=== PATIENT | male | born 1985 | race African-American/Black ===

== ENCOUNTER 2023-04-29 17:53 | Emergency (ER) | payer OTHER, SELFPAY ==
[2023-04-29 18:14] VITALS: BP 180/110; PULSE 98; RESP 18; TEMP 36.9; O2SAT 99; BMI 29.4
--- NOTE | 2023-04-29 18:23 | ED_ITS ---
HPI - URI/Sore Throat General Chief Complaint: Upper Respiratory Infection Stated Complaint: SORE THROAT Time Seen by Provider: 04/29/23 17:58 Source: patient Limitations: no limitations History of Present Illness HPI Narrative: Patient is a 38-year-old male presents to the ER with concerns of sore throat and painful swallowing, states symptoms started 3 days ago, denies fever. States he had some sinus congestion which resolved after using a vapo stick. Patient has been trying Chloraseptic spray without relief, notes painful swallowing drinking water and ice chips at the bedside but spits frequently. Patient states he has not taken his blood pressure medication in 2 days because it hurts to swallow. He appears in no distress and did not take any Tylenol or Motrin prior to arrival. Minimal cough noted. declines COVID or influenza screen MD elicited complaint: Reports sore throat and nasal congestion; Denies fever Onset (ago): day(s) (3) Consistency: Reports constant Able to tolerate fluids by mouth: Yes (ice chips at bedside) Exacerbating factors: Reports swallowing Relieving factors: Reports nasal spray Context: Denies sick contacts or recent travel Associated symptoms: Reports cough, nausea and vomiting (x1 before symptom onset) Treatments prior to arrival: Reports none Related Data Previous Rx's ?Medication ?Instructions ?Recorded amoxicillin 500 mg capsule 500 mg PO BID 10 days #20 caps 04/29/23 ibuprofen 600 mg tablet 600 mg PO TID PRN pain #30 tabs 04/29/23 ondansetron HCl 4 mg tablet 4 mg PO Q6H PRN nausea and 04/29/23 vomiting #12 tabs Allergies Allergy/AdvReac Type Severity Reaction Status Date / Time No Known Drug Allergies Allergy Verified 04/29/23 18:17 Review of Systems ROS Constitutional Denies: fever or chills Ears, nose, mouth, and throat Reports: throat pain, neck pain, throat swelling and difficulty swallowing; Denies: mouth pain or swelling of lips/tongue Cardiovascular Denies: chest pain or palpitations Respiratory Denies: shortness of breath, cough or wheezing Gastrointestinal Denies: abdominal pain, nausea or vomiting Genitourinary Denies: painful urination Musculoskeletal Denies: back pain or neck pain Integumentary/Breast Denies: rash Neurological Denies: headache Psychiatric Denies: anxiety Allergic/Immunologic Denies: hives Exam Narrative Exam Narrative: Nurses notes and vital signs reviewed and patient is not hypoxic. General: The patient appears well and in no apparent distress. Patient is resting chair in triage Skin: Warm, dry, no pallor noted. Head: Normocephalic, atraumatic Neck: Supple, trachea mid-line, no tenderness,Positive tender anterior cervical lymphadenopathy Eye: Pupils are equal, round and reactive to light, EOMI Ears, Nose, Mouth, and Throat: mild Cerumen bilateral canals, visualized portions of the TM unremarkable. oral mucosa is moist, no posterior oropharynx erythema or hypertrophy, uvula is mid-line Erythematous and swollen without evidence of abscess. Consistent with uvulitis. I can feel the ball hit the back of my tongue. Cardiovascular: Regular Rate and Rhythm Respiratory: Patient is in no distress, no accessory muscle use, lungs are clear to auscultation, no wheezing, rales or rhonchi. Musculoskeletal: normal ROM, no tenderness, no swelling GI: denies abdominal Pain Neurological: A&O x4 Psychiatric: Cooperative Constitutional Vital Signs, click to edit/add: Last Vital Signs Temp 98.4 F 04/29/23 18:14 Pulse 98 H 04/29/23 18:14 Resp 18 04/29/23 18:14 BP 180/110 H 04/29/23 18:14 Pulse Ox 99 04/29/23 18:14 O2 Del Method Room Air 04/29/23 18:14 Course Vital Signs Vital signs: Vital Signs Temperature 98.4 F 04/29/23 18:14 Pulse Rate 98 H 04/29/23 18:14 Respiratory Rate 18 04/29/23 18:14 Blood Pressure 180/110 H 04/29/23 18:14 Pulse Oximetry 99 04/29/23 18:14 Oxygen Delivery Method Room Air 04/29/23 18:14 Temperature 98.4 F 04/29/23 18:14 Pulse Rate 98 H 04/29/23 18:14 Respiratory Rate 18 04/29/23 18:14 Blood Pressure 180/110 H 04/29/23 18:14 Pulse Oximetry 99 04/29/23 18:14 Oxygen Delivery Method Room Air 04/29/23 18:14 MDM - URI/Sore Throat MDM Narrative Medical decision making narrative: Patient presents with complaint of sore throat, painful swallowing for the past 2 to 3 days. Clinical exam noted for uvulitis, empiric treatment discussed. Patient given Decadron, oral Tylenol. He has tried Chloraseptic spray without relief. He is tolerating ice chips at the bedside. We discussed antibiotic use, risks and benefits. Patient will need to continue with Tylenol Motrin for relief. Patient may return if symptoms worsen or new symptoms develop. Abscess not appreciated at this time. We discussed his hypertension and patient admits to having blood pressure medications at home but has not taken it for the past 2 days because it hurt to swallow. Patient is to practice a soft liquid diet for the next 12 to 24 hours. The patient is to followup with primary care physician in next 2-3 days or to return to the emergency department should any of the signs or symptoms worsen or new symptoms develop. Patient had questions answered. The patient agrees with the following Diagnosis and Treatment plan and the patient will be discharged home. Discharge Plan Discharge Stand Alone Forms: Portal Instructions Chief Complaint: Upper Respiratory Infection Clinical Impression: Uvulitis Patient Disposition: Home, Self-Care Time of Disposition Decision: 18:31 Condition: Good Mode of Transportation: Private Vehicle Prescriptions / Home Meds: New ondansetron HCl 4 mg tablet 4 mg PO Q6H PRN (Reason: nausea and vomiting) Qty: 12 0RF ibuprofen 600 mg tablet 600 mg PO TID PRN (Reason: pain) Qty: 30 0RF amoxicillin 500 mg capsule 500 mg PO BID 10 Days Qty: 20 0RF Print Language: Luxembourger Instructions: Uvulitis (ED) Additional Instructions: Continue with Motrin and Tylenol despite antibiotic treatment, return to ER if symptoms worsen - Clear liquids for next 12-24 hours. -contact your PCP for follow up and have BP rechecked Referrals: Luis Enrique Sandoval MD [Physician] - 1 week Discharge Date/Time: 04/29/23 18:49
[2023-04-29] MEDS: ACETAMINOPHEN 500 MG TABLET 1000 MG PO (18:43)
[2023-04-29] MEDS: DEXAMETHASONE SOD PHOS 10 MG/ML VIAL PO (18:44)
[2023-04-29] MEDS: AMOXICILLIN 500 MG CAPSULE PO (18:44)
[2023-04-29] MEDS: ONDANSETRON 4 MG RAPDIS TABLET SL (18:44)
== END 2023-04-29 18:49 | disposition home or self-care (01) ==
PROVIDERS: Emergency Provider Emergency Medicine
DX: K12.2 Cellulitis and abscess of mouth (principal)
CPT/HCPCS: 99284; J1100